=== PATIENT | male | born 1970 | race African-American/Black ===

== ENCOUNTER 2024-11-17 14:33 | Inpatient (IN) | payer OTHER ==
[~2024-11-17] VITALS: Ht 170.2 cm; Wt 76.0 kg
[2024-11-17 15:44] LABS: CALCIUM, TOTAL 8.5 mg/dL (8.8-10.5); CREATININE 1.08 mg/dL (0.60-1.30); GLOMERULAR FILTR. RATE CALC > 60 mL/min (>60); GLUCOSE,RANDOM 113 mg/dL (70-110); SODIUM SERUM 139 mmol/L (136-145); UREA NITROGEN, BLOOD 17 mg/dL (7-18)
[2024-11-17 15:45] LABS: COVID AG,FIA SOURCE NASAL SWAB
[2024-11-17 15:46] LABS: PLATELET COUNT (AUTO) 169 K/uL (150-450); RED BLOOD CELL COUNT(AUTO) 4.75 MIL/uL (4.50-5.90); RED CELL DISTRIBUTION WIDTH 14.8 % (11.5-14.5); WHITE BLOOD COUNT (AUTO) 9.9 K/uL (4.5-11.0)
[2024-11-17 16:05] LABS: SARS-COV2 (COVID) ANTIGEN,FIA Negative (Negative)
[2024-11-17 19:45] LABS: APPEARANCE,URINE CLEAR (CLEAR); GLUCOSE, URINE (UA) NEGATIVE (NEGATIVE); LEUKOCYTE ESTERASE ,URINE NEGATIVE (NEGATIVE); NITRATE,URINE NEGATIVE (NEGATIVE); OCCULT BLOOD,URINE NEGATIVE (NEGATIVE); PH,URINE DRUG SCREEN 6.5 (5.0-8.0); SPECIFIC GRAVITIY, URINE 1.027 (1.003-1.030)
[2024-11-17 19:52] LABS: AMPHET/METH SCREEN,URINE NEGATIVE (NEGATIVE); BARBITURATE SCREEN, URINE NEGATIVE (NEGATIVE); CANNABINOID SCREEN,URINE NEGATIVE (NEGATIVE); COCAINE SCREEN,URINE NEGATIVE (NEGATIVE); METHADONE SCREEN, URINE NEGATIVE (NEGATIVE)
[2024-11-17 20:04] LABS: ALCOHOL, URINE DRUG SCREEN NEGATIVE (NEGATIVE)
[2024-11-17] MEDS: ZOLPIDEM TARTRATE 10 MG TABLET PO PRN (21:33)
[2024-11-17] MEDS ORDERED: PETROLATUM,WHITE 28 GM JELLY TP PRN (21:45)
[2024-11-17] MEDS ORDERED: ALBUTEROL SULFATE HFA 90 MCG/PUFF 8 GM INHALER IH PRN (21:45)
[2024-11-17] MEDS ORDERED: MAG HYDROX/ALUMINUM HYD/SIMETH ES 30 ML SUSPENSION UDCUP PO PRN (21:45)
[2024-11-17] MEDS ORDERED: DOCUSATE SODIUM 100 MG CAPSULE PO PRN (21:45)
[2024-11-17] MEDS ORDERED: ONDANSETRON 4 MG TABLET PO PRN (21:45)
[2024-11-17] MEDS ORDERED: IBUPROFEN 600 MG TABLET PO PRN (21:45)
[2024-11-17] MEDS ORDERED: BENZOCAINE/MENTHOL [CEPACOL] LOZENGE PO PRN (21:45)
[2024-11-17] MEDS ORDERED: OMEPRAZOLE 20 MG CAPSULE PO PRN (21:45)
[2024-11-17] MEDS ORDERED: ACETAMINOPHEN 325 MG TABLET PO PRN (21:45)
[2024-11-17] MEDS ORDERED: BACITRACIN 28 GM OINTMENT TP PRN (21:45)
[2024-11-17] MEDS ORDERED: LOPERAMIDE HCL 2 MG CAPSULE PO PRN (21:45)
[2024-11-17 22:36] VITALS: BP 130/70; PULSE 70; RESP 18; TEMP 98.3; O2SAT 99
[2024-11-17 22:38] VITALS: BP 130/70; PULSE 70; RESP 18; TEMP 98.3; O2SAT 99
[2024-11-18 06:51] VITALS: BP 129/99; PULSE 83; RESP 18; TEMP 97.5; O2SAT 100
[2024-11-18 07:17] LABS: CHOL/HDL RATIO 2.5 (4.2-7.3); LDL CHOL (CALC.) 60.0 mg/dL (0-130)
[2024-11-18 09:38] VITALS: BP 123/82; PULSE 87; RESP 15; TEMP 98.4; O2SAT 100
[2024-11-18] MEDS: NICOTINE POLACRILEX 2 MG LOZENGE PO PRN (11:39)
[2024-11-18 20:04] VITALS: BP 120/75; PULSE 67; RESP 17; TEMP 97.8; O2SAT 98
[2024-11-19 08:02] VITALS: BP 114/81; PULSE 75; RESP 18; TEMP 98.4; O2SAT 100
[2024-11-19 21:03] VITALS: BP 101/85; PULSE 85; RESP 18; TEMP 98.2; O2SAT 96
[2024-11-20 09:22] VITALS: BP 118/78; PULSE 73; RESP 16; TEMP 98; O2SAT 100
[2024-11-20 20:15] VITALS: BP 113/99; PULSE 83; RESP 16; TEMP 98.6; O2SAT 98
[2024-11-20] MEDS: MAGNESIUM HYDROXIDE SUSPENSION 30 ML UDCUP PO PRN (20:23)
[2024-11-21 09:14] VITALS: BP 129/77; PULSE 75; RESP 16; TEMP 98.6; O2SAT 99
[2024-11-21 21:26] VITALS: BP 105/57; PULSE 98; RESP 17; TEMP 97; O2SAT 98
[2024-11-22 09:21] VITALS: BP 104/70; PULSE 82; RESP 18; TEMP 97.8; O2SAT 99
[2024-11-22 23:53] VITALS: BP 107/88; PULSE 90; RESP 18; TEMP 97.8; O2SAT 98
[2024-11-23 08:07] VITALS: BP 111/68; PULSE 83; RESP 17; TEMP 97.9; O2SAT 100
[2024-11-23 21:29] VITALS: BP 131/69; PULSE 71; RESP 18; TEMP 97.8; O2SAT 99
[2024-11-24 09:58] VITALS: BP 131/88; PULSE 77; RESP 16; TEMP 98.2; O2SAT 100
[2024-11-25 08:59] VITALS: BP 117/78; PULSE 78; RESP 18; TEMP 97.2; O2SAT 98
[2024-11-25 20:47] VITALS: BP 127/72; PULSE 81; RESP 18; TEMP 97.7
[2024-11-26 09:40] VITALS: BP_SYST 118; BP_SYST 139; BP_DIAS 100; BP_DIAS 72; PULSE 73; RESP 18; TEMP 97.8; O2SAT 98
[2024-11-26 20:08] VITALS: BP 115/74; PULSE 74; RESP 18; TEMP 97.1; O2SAT 97
[2024-11-27] MEDS ORDERED: QUET200T PO (09:03)
== END 2024-11-27 11:00 | disposition home or self-care (01) | DRG 885 ==
LOC: EMS 15:08 → 3EI 20:30
PROVIDERS: ADMIT Psychiatry & Neurology Psychiatry; ATTEND Psychiatry & Neurology Psychiatry
DX: F25.9 Schizoaffective disorder, unspecified (principal); R45.851 Suicidal ideations; F10.139 Alcohol abuse with withdrawal, unspecified; K59.00 Constipation, unspecified; K21.9 Gastro-esophageal reflux disease without esophagitis; F41.9 Anxiety disorder, unspecified; G47.00 Insomnia, unspecified; I10 Essential (primary) hypertension; F14.10 Cocaine abuse, uncomplicated; Y90.9 Presence of alcohol in blood, level not specified; Z20.822 Contact with and (suspected) exposure to COVID-19; Z72.0 Tobacco use
CPT/HCPCS: 80048; 80061; 80307; 81003; 83036; 85025; 99285; G0480

== ENCOUNTER 2024-12-29 21:23 | Inpatient (IN) | payer MEDICAID, OTHER ==
[~2024-12-29] VITALS: Ht 152.4 cm; Wt 75.0 kg
[~2024-12-29 21:23] MED LIST: QUET200T PO
[2024-12-29 22:21] LABS: COVID AG,FIA SOURCE NASAL SWAB
[2024-12-29 22:29] LABS: SARS-COV2 (COVID) ANTIGEN,FIA Negative (Negative)
[2024-12-29 22:55] LABS: PLATELET COUNT (AUTO) 167 K/uL (150-450); RED BLOOD CELL COUNT(AUTO) 4.45 MIL/uL (4.50-5.90); RED CELL DISTRIBUTION WIDTH 14.6 % (11.5-14.5); WHITE BLOOD COUNT (AUTO) 7.0 K/uL (4.5-11.0)
[2024-12-29 23:04] LABS: CALCIUM, TOTAL 9.0 mg/dL (8.8-10.5); CREATININE 0.73 mg/dL (0.60-1.30); GLOMERULAR FILTR. RATE CALC > 60 mL/min (>60); GLUCOSE,RANDOM 92 mg/dL (70-110); SODIUM SERUM 140 mmol/L (136-145); UREA NITROGEN, BLOOD 19 mg/dL (7-18)
[2024-12-30 03:23] LABS: APPEARANCE,URINE CLEAR (CLEAR); GLUCOSE, URINE (UA) NEGATIVE (NEGATIVE); LEUKOCYTE ESTERASE ,URINE NEGATIVE (NEGATIVE); NITRATE,URINE NEGATIVE (NEGATIVE); OCCULT BLOOD,URINE NEGATIVE (NEGATIVE); PH,URINE DRUG SCREEN 6.0 (5.0-8.0); SPECIFIC GRAVITIY, URINE 1.029 (1.003-1.030)
[2024-12-30 03:30] LABS: ALCOHOL, URINE DRUG SCREEN NEGATIVE (NEGATIVE); AMPHET/METH SCREEN,URINE NEGATIVE (NEGATIVE); BARBITURATE SCREEN, URINE NEGATIVE (NEGATIVE); CANNABINOID SCREEN,URINE NEGATIVE (NEGATIVE); COCAINE SCREEN,URINE NEGATIVE (NEGATIVE); METHADONE SCREEN, URINE NEGATIVE (NEGATIVE)
[2024-12-30] MEDS: LORazepam 2 MG/ML VIAL IM ONE (05:38)
[2024-12-30] MEDS ORDERED: LOPERAMIDE HCL 2 MG CAPSULE PO PRN ×2 (10:00)
[2024-12-30] MEDS ORDERED: TUBERCULIN, PURIFIED PROTEIN DERIVATIVE 5 TU/0.1 ML SYRINGE ID ONE (10:00)
[2024-12-30] MEDS ORDERED: ACETAMINOPHEN 325 MG TABLET PO PRN (10:00)
[2024-12-30] MEDS ORDERED: GuaiFENesin/D-METHORPHAN [SUGAR-FREE] 200-20MG/10 ML SYRUP UDCUP PO PRN (10:00)
[2024-12-30] MEDS ORDERED: PROMETHAZINE HCL 25 MG TABLET PO PRN (10:00)
[2024-12-30] MEDS ORDERED: MAGNESIUM HYDROXIDE SUSPENSION 30 ML UDCUP PO PRN (10:00)
[2024-12-30] MEDS ORDERED: MAG HYDROX/ALUMINUM HYD/SIMETH ES 30 ML SUSPENSION UDCUP PO PRN (10:00)
[2024-12-30] MEDS ORDERED: CYANOCOBALAMIN 1,000 MCG/ML VIAL IM ONE (10:00)
[2024-12-30] MEDS ORDERED: ZOLPIDEM TARTRATE 10 MG TABLET PO PRN (10:00)
[2024-12-30] MEDS: PALIPERIDONE PALMITATE 234 MG/1.5 ML SYRINGE IM ONE (16:00)
[2024-12-30] MEDS ORDERED: NICOTINE POLACRILEX 2 MG LOZENGE PO PRN (16:15)
[2024-12-30 18:18] VITALS: BP 122/71; PULSE 71; RESP 16; TEMP 97; O2SAT 100
[2024-12-30 20:27] VITALS: BP 125/71; PULSE 74; RESP 16; TEMP 97.4; O2SAT 100
[2024-12-30 21:00] VITALS: BP 139/86; PULSE 88; RESP 17; TEMP 98.8; O2SAT 97
[2024-12-30] MEDS ORDERED: THIAMINE 100 MG TABLET PO SCH (21:00)
[2024-12-30] MEDS ORDERED: MELATONIN 5 MG TABLET PO SCH (21:00)
[2024-12-31 08:35] VITALS: BP 117/67; PULSE 72; RESP 16; TEMP 97.7; O2SAT 100
[2024-12-31] MEDS ORDERED: FOLIC ACID 1 MG TABLET PO SCH (09:00)
[2024-12-31] MEDS ORDERED: MULTIVITAMINS WITH MINERALS, THERAPEUTIC TABLET PO SCH (09:00)
[2024-12-31] MEDS ORDERED: NALTREXONE HCL 50 MG TABLET PO SCH (09:00)
[2024-12-31 21:58] VITALS: BP 140/73; PULSE 78; RESP 18; TEMP 97.5; O2SAT 99
[2025-01-01 08:14] VITALS: BP 129/74; PULSE 75; RESP 16; TEMP 97.5; O2SAT 100
[2025-01-01] MEDS ORDERED: ACETAMINOPHEN 325 MG TABLET PO PRN (09:45)
[2025-01-01] MEDS: IBUPROFEN 600 MG TABLET PO PRN (10:18)
[2025-01-01 20:09] VITALS: BP 115/70; PULSE 82; RESP 18; TEMP 98.1; O2SAT 97
[2025-01-02 08:03] VITALS: BP 108/61; PULSE 74; RESP 16; TEMP 98.3; O2SAT 100
[2025-01-02 20:23] VITALS: BP 124/57; PULSE 68; RESP 18; TEMP 97.6; O2SAT 98
[2025-01-03 08:14] VITALS: BP 118/70; PULSE 78; RESP 18; TEMP 97.8; O2SAT 95
[2025-01-03] MEDS ORDERED: PALIPERIDONE PALMITATE 156 MG/ML SYRINGE IM ONE (09:00)
[2025-01-03 20:14] VITALS: BP 101/60; PULSE 63; RESP 18; TEMP 98.4; O2SAT 98
[2025-01-04 08:27] VITALS: BP 98/67; PULSE 77; RESP 16; TEMP 97.9; O2SAT 100
[2025-01-04 09:42] LABS: ASPARTATE AMINOTRANSFERASE 26 U/L (15-37); CALCIUM, TOTAL 8.5 mg/dL (8.8-10.5); CHOL/HDL RATIO 4.1 (4.2-7.3); CREATININE 1.01 mg/dL (0.60-1.30); GLOMERULAR FILTR. RATE CALC > 60 mL/min (>60); GLUCOSE,RANDOM 159 mg/dL (70-110); LDL CHOL (CALC.) 100 mg/dL (0-130); SODIUM SERUM 141 mmol/L (136-145); TOTAL PROTEIN, SERUM 7.5 g/dL (6.4-8.2); UREA NITROGEN, BLOOD 12 mg/dL (7-18)
[2025-01-04 20:27] VITALS: BP 116/66; PULSE 69; RESP 17; TEMP 98.2; O2SAT 98
[2025-01-05 08:21] VITALS: BP 119/68; PULSE 73; RESP 16; TEMP 96.9; O2SAT 98
[2025-01-05 21:30] VITALS: BP 118/70; PULSE 72; RESP 16; TEMP 97.2; O2SAT 99
[2025-01-06 08:13] VITALS: BP 102/64; PULSE 74; RESP 17; TEMP 97; O2SAT 97
[2025-01-06] MEDS ORDERED: ZOLPIDEM TARTRATE 10 MG TABLET PO PRN (18:45)
[2025-01-06 20:08] VITALS: BP 122/69; PULSE 79; RESP 17; TEMP 97.8; O2SAT 97
[2025-01-07 01:21] VITALS: BP 116/73; PULSE 64; RESP 17; TEMP 97.9; O2SAT 99
[2025-01-07 02:22] VITALS: RESP 17
[2025-01-07 08:07] VITALS: BP 99/72; PULSE 78; RESP 16; TEMP 98.2; O2SAT 99
[2025-01-07 21:08] VITALS: BP 118/55; PULSE 85; RESP 17; TEMP 97.8; O2SAT 100
[2025-01-08] MEDS ORDERED: QUET200T30 PO (06:25)
[2025-01-08 08:14] VITALS: BP 105/61; PULSE 80; RESP 17; TEMP 97.9; O2SAT 99
== END 2025-01-08 09:43 | disposition home or self-care (01) | DRG 750 ==
LOC: EMS 21:41 → B3A 12-30 13:40
PROVIDERS: ADMIT Psychiatry & Neurology Psychiatry; ATTEND Psychiatry & Neurology Psychiatry
PROC: GZHZZZZ Group Psychotherapy (ICD-10-PCS; principal; 2024-12-31)
PROC: GZ52ZZZ Individual Psychotherapy, Cognitive (ICD-10-PCS; 2024-12-31)
PROC: GZ56ZZZ Individual Psychotherapy, Supportive (ICD-10-PCS; 2024-12-31)
PROC: GZ58ZZZ Individual Psychotherapy, Cognitive-Behavioral (ICD-10-PCS; 2024-12-31)
DX: F20.0 Paranoid schizophrenia (principal); Z91.148 Patient's other noncompliance with medication regimen for other reason; Z59.00 Homelessness unspecified; F10.20 Alcohol dependence, uncomplicated; Z20.822 Contact with and (suspected) exposure to COVID-19; F17.210 Nicotine dependence, cigarettes, uncomplicated; F12.10 Cannabis abuse, uncomplicated; D64.9 Anemia, unspecified; F14.10 Cocaine abuse, uncomplicated; Z79.899 Other long term (current) drug therapy
CPT/HCPCS: 80048; 80053; 80061; 80307; 81003; 83036; 84439; 84443; 85025; 86592; 96372; 99285; G0480